=== PATIENT | female | born 1945 | race Caucasian/White ===

== ENCOUNTER 2017-03-24 17:12 | Emergency (ER) | payer MEDICARE ==
[2017-03-24 17:57] LABS: Basophils # (A) 0.1 k/uL (0-0.2); Basophils % (A) 1 %; CH 31.9; CHCM 32.6; Eosinophils # (A) 0.2 k/uL (0-0.7); Eosinophils % (A) 3 %; HCT 40.7 % (34.0-46.0); HGB 13.5 gm/dL (11.4-16.0); Luc # (Auto) 0.19; Luc % (Auto) 2; Lymphocytes # (A) 2.1 k/uL (1.0-4.8); Lymphocytes % (A) 27 %; MCH 32.7 pg (25.0-35.0); MCHC 33.2 g/dL (31.0-37.0); MCV 98.4 fL (80.0-100.0); Mean Platelet Volume 7.4; Monocytes # (A) 0.6 k/uL (0-1.0); Monocytes % (A) 7 %; Neutrophils # (A) 4.7 k/uL (1.3-7.7); Neutrophils % (A) 60 %; RBC 4.13 m/uL (3.80-5.40); RDW 13.2 % (11.5-15.5); WBC 7.8 k/uL (3.8-10.6); WBC (Perox) 8.24
[2017-03-24 18:10] LABS: INR 0.9 (<1.1); Prothrombin Time 9.7 sec (9.0-12.0)
[2017-03-24 18:15] LABS: ALT 23 U/L (9-52); AST 21 U/L (14-36); Alkaline Phosphatase 46 U/L (38-126); Anion Gap 10 mmol/L; Blood Urea Nitrogen 32 mg/dL (7-17); Calcium 9.7 mg/dL (8.4-10.2); Carbon Dioxide 22 mmol/L (22-30); Chloride 105 mmol/L (98-107); Glucose 142 mg/dL (74-99); Magnesium 1.9 mg/dL (1.6-2.3); Non-African American GFR(MDRD) >60 (>60 ml/min/1.73 sqM); Potassium 4.4 mmol/L (3.5-5.1); Sodium 137 mmol/L (137-145); Total Bilirubin 0.5 mg/dL (0.2-1.3); Total Protein 6.8 g/dL (6.3-8.2)
--- NOTE | 2017-03-24 18:30 | ED ---
Chest Pain HPI - General Chief Complaint: Chest Pain Stated Complaint: SHARP CHEST PAIN DOWN AND LEFT, PRESSURE Time Seen by Provider: 03/24/17 17:25 Source: patient, family Mode of arrival: wheelchair Limitations: no limitations - History of Present Illness Initial Comments: This patient is 71-year-old woman who presents to be evaluated after she had an episode of severe, sharp, right-sided chest pain. The patient states that she had just [place]. The pain came on and was severe and lasted for probably 10 seconds and then resolved. Patient did not notice any factors that worsen or relieve the pain. There were no associated symptoms. Following the episode pain her recommended that she be seen and brought her directly here. MD Complaint: chest pain Onset/Timin -: hour(s) Onset: during rest Pain Location: right chest Severity: severe Quality: sharp Consistency: now resolved - Related Data Home Medications Medication Instructions Recorded Confirmed ALPRAZolam [Xanax] 0.25 mg PO BID 03/24/17 03/24/17 Ascorbic Acid [Vitamin C] 500 mg PO DAILY 03/24/17 03/24/17 Cholecalciferol [Vitamin D3] 1,000 unit PO DAILY 03/24/17 03/24/17 Citalopram Hydrobromide 40 mg PO DAILY 03/24/17 03/24/17 Cyanocobalamin [Vitamin B-12] 500 mcg PO DAILY 03/24/17 03/24/17 Donepezil [Aricept] 10 mg PO DAILY 03/24/17 03/24/17 Ibuprofen [Advil] 200 mg PO DAILY 03/24/17 03/24/17 Levothyroxine Sodium [Synthroid] 125 mcg PO DAILY 03/24/17 03/24/17 Lisinopril [Zestril] 20 mg PO DAILY 03/24/17 03/24/17 Zzz Quil 30 ml PO HS 03/24/17 03/24/17 Allergies Allergy/AdvReac Type Severity Reaction Status Date / Time No Known Allergies Allergy Verified 03/24/17 17:57 Review of Systems ROS Statement: Those systems with pertinent positive or pertinent negative responses have been documented in the HPI. ROS Other: All systems not noted in ROS Statement are negative. Constitutional: Denies: fever, chills Respiratory: Denies: cough, dyspnea, wheezes Cardiovascular: Reports: chest pain. Denies: palpitations, orthopnea, edema, syncope Gastrointestinal: Denies: abdominal pain, nausea, vomiting Genitourinary: Denies: dysuria, hematuria Musculoskeletal: Denies: back pain Skin: Denies: rash Neurological: Denies: headache, weakness, numbness EKG Findings - EKG Results: EKG: interpreted by ROCKY BEAUCHAMP, sinus rhythm (Rate 70 bpm), normal axis, normal QRS, normal ST/T, no acute changes - MA, Pacemaker, Normal: Normal tracing: normal tracing Past Medical History Past Medical History: Hypertension History of Any Multi-Drug Resistant Organisms: None Reported Past Surgical History: Appendectomy, Cholecystectomy, Orthopedic Surgery Additional Past Surgical History / Comment(s): LEFT KNEE REPLACED Past Psychological History: Anxiety Smoking Status: Never smoker Past Alcohol Use History: Daily Past Drug Use History: None Reported General Exam Limitations: no limitations General appearance: alert, in no apparent distress, obese Head exam: Present: atraumatic, normocephalic Eye exam: Present: normal appearance. Absent: scleral icterus, conjunctival injection ENT exam: Present: normal oropharynx Neck exam: Present: normal inspection, full ROM Respiratory exam: Present: normal lung sounds bilaterally. Absent: respiratory distress, wheezes, rales, rhonchi, stridor, chest wall tenderness Cardiovascular Exam: Present: regular rate, normal rhythm, systolic murmur ( Grade 1/6 systolic ejection murmur at the right sternal border.). Absent: diastolic murmur, rubs, gallop GI/Abdominal exam: Present: soft. Absent: distended, tenderness, guarding, rebound, organomegaly, mass, pulsatile mass, hernia Extremities exam: Present: normal inspection, normal capillary refill. Absent: pedal edema, calf tenderness Back exam: Present: normal inspection. Absent: CVA tenderness (R), CVA tenderness (L) Neurological exam: Present: alert Skin exam: Present: warm, dry, intact, normal color. Absent: rash Course Vital Signs 03/24/17 03/24/17 03/24/17 17:14 19:24 20:33 Temperature 97.6 F 98.0 F Pulse Rate 75 73 60 Respiratory 16 18 18 Rate Blood Pressure 137/71 144/67 101/70 O2 Sat by Pulse 98 97 98 Oximetry Chest Pain [facility] - [facility]DM Patient is 71-year-old woman presenting with episode of chest pain that lasted 5 -10 seconds and resolved. Her workup here is negative. We did discuss the fact that this sort of event requires more than 1 set of cardiac enzymes to rule out MA, but the patient is refusing to stay overnight. She states that she will follow up with cardiology as outpatient. We discussed return parameters and she agrees to return should any symptoms recur. Disposition Clinical Impression: Chest pain Disposition: HOME SELF-CARE Condition: Good Instructions: Chest Pain (ED) Referrals: Matti Diehl DO [Primary Care Provider] - 1-2 days Justina Pandey MD [STAFF PHYSICIAN] - 1-2 days
--- NOTE | 2017-03-24 18:32 | XR ---
EXAMINATION TYPE: XR chest 1V portable DATE OF EXAM: 03/24/2017 6:20 PM COMPARISON: NONE HISTORY: Chest pain and heaviness today. TECHNIQUE: Single AP portable frontal upright view of the chest is obtained. FINDINGS: Low lung volumes are present. There is no focal air space opacity, pleural effusion, or pn eumothorax seen. The cardiac silhouette size is upper limits of normal. Subchondral cystic change bi lateral humeral heads is present. IMPRESSION: No acute process.
[2017-03-24] MEDS ORDERED: RX INFO: IV CONTRAST WAS GIVEN 1 EACH MISC MISCELLANE PRN (18:34)
[2017-03-24 19:25] VITALS: RESP 18
--- NOTE | 2017-03-24 19:44 | CT ---
EXAMINATION TYPE: CT chest angio for PE DATE OF EXAM: 03/24/2017 7:13 PM COMPARISON: NONE HISTORY: Pt states of chest pain today. CT DLP: 528.6 mGycm. Automated Exposure Control for Dose Reduction was Utilized. CONTRAST: CTA scan of the thorax is performed with IV Contrast, patient injected with 70 mL of Omnipaque 350, p ulmonary embolism protocol. MIP Images are created on CT scanner and reviewed. FINDINGS: LUNGS: The lungs are grossly clear, there is no concerning parenchymal mass or nodule identified. Th ere is thin-walled cyst or bleb in the left upper lobe on axial image 48. There is no pleural effusio n or pneumothorax seen. The tracheobronchial tree is patent. MEDIASTINUM: There is satisfactory enhancement of the pulmonary artery and its branches, there is no CT evidence for pulmonary embolism. There are no greater than 1 cm hilar or mediastinal lymph nodes. No cardiomegaly or pericardial effusion is seen. Bovine type arch is seen which is normal variant. Ectatic course to visualized abdominal aorta is noted. OTHER: Mild compression type fracture L1 level is presumed chronic as there is no suspicious lucency identified. This is at the peak of thoracolumbar curvature. IMPRESSION: No CT evidence for pulmonary embolism. No suspicious acute pulmonary process.
[2017-03-24 20:36] VITALS: BP 101/70; PULSE 60; TEMP 98
== END 2017-03-24 20:34 | disposition home or self-care (01) ==
LOC: EC 17:12
DX: R07.89 Other chest pain (principal); E66.9 Obesity, unspecified; I10 Essential (primary) hypertension; F41.9 Anxiety disorder, unspecified; Z79.1 Long term (current) use of non-steroidal anti-inflammatories (NSAID); Z79.899 Other long term (current) drug therapy
CPT/HCPCS: 36415; 93005; 85379; 80053; 83735; 84484; 85025; 85610; 85730; 71010; 71275; 99285; Q9967

== ENCOUNTER → 2017-07-02 | Outpatient (CLI) | payer MEDICARE ==
--- NOTE | 2017-07-07 11:09 | MM ---
Reason for exam: screening (asymptomatic). Last mammogram was performed 7 years and 6 months ago. History: Patient is postmenopausal. Family history of breast cancer in cousin. Physical Findings: A clinical breast exam by your physician is recommended on an annual basis and results should be correlated with mammographic findings. MG 3D Screening Mammo W/Cad Bilateral CC and MLO view(s) were taken. Prior study comparison: April 14, 2006, bilateral screening mammogram w/CAD. March 08, 2002, bilateral screening mammogram. There are scattered fibroglandular densities. There is no discrete abnormality. ASSESSMENT: Negative, BI-RAD 1 RECOMMENDATION: Routine screening mammogram of both breasts in 1 year.
== END | disposition home or self-care (01) ==
LOC: RADMAMWWP 13:10
PROVIDERS: ATTEND Family Medicine
DX: Z12.31 Encounter for screening mammogram for malignant neoplasm of breast (principal)
CPT/HCPCS: 77063; G0202

== ENCOUNTER → 2017-07-16 | Outpatient (CLI) | payer MEDICARE | END | disposition home or self-care (01) | LOC: LABWHC1 14:29 | PROVIDERS: ATTEND Internal Medicine Endocrinology, Diabetes & Metabolism | DX: E03.8 Other specified hypothyroidism (principal) | CPT/HCPCS: 36415; 84443 ==

== ENCOUNTER 2018-04-18 17:19 | Emergency (ER) | payer MEDICARE ==
[2018-04-18 17:25] VITALS: BP 141/65; PULSE 70; RESP 20; TEMP 97.8
[2018-04-18] MEDS ORDERED: PROPARACAINE 0.5% OPHTH DROPS 15 ML BTL RIGHT EYE STA (17:44)
--- NOTE | 2018-04-18 18:11 | ED ---
Eye Problem HPI - General Chief complaint: Eye Problems Stated complaint: Eye Pain Time Seen by Provider: 04/18/18 17:45 Source: patient, RN notes reviewed Mode of arrival: ambulatory Limitations: no limitations - History of Present Illness Initial comments: This is a 72-year-old female who presents to the emergency department with chief complaint of right eye pain. Patient states that at 3:30 this afternoon she put on her eye makeup. She states that immediately afterwards her right eye developed a burning sensation. Her is at bedside and states that while at latter-day patient's eye was burning and tearing excessively. Patient denies any vision changes or blurred vision. She denies any foreign body sensation. Denies recent fevers or chills, chest pain or shortness breath, abdominal pain, nausea or vomiting, headache or dizziness. Patient states that currently, her symptoms have improved. - Related Data Home Medications Medication Instructions Recorded Confirmed ALPRAZolam [Xanax] 0.25 mg PO BID 03/24/17 03/24/17 Ascorbic Acid [Vitamin C] 500 mg PO DAILY 03/24/17 03/24/17 Cholecalciferol [Vitamin D3] 1,000 unit PO DAILY 03/24/17 03/24/17 Citalopram Hydrobromide 40 mg PO DAILY 03/24/17 03/24/17 [Citalopram HBr] Cyanocobalamin [Vitamin B-12] 500 mcg PO DAILY 03/24/17 03/24/17 Donepezil [Aricept] 10 mg PO DAILY 03/24/17 03/24/17 Ibuprofen [Advil] 200 mg PO DAILY 03/24/17 03/24/17 Levothyroxine Sodium [Synthroid] 125 mcg PO DAILY 03/24/17 03/24/17 Lisinopril [Zestril] 20 mg PO DAILY 03/24/17 03/24/17 Zzz Quil 30 ml PO HS 03/24/17 03/24/17 Previous Rx's Medication Instructions Recorded Carboxymethylcellulose Sodium 1 - 2 drops OP Q4HR PRN #1 bottle 04/18/18 [Refresh Tears] Allergies Allergy/AdvReac Type Severity Reaction Status Date / Time No Known Allergies Allergy Verified 04/18/18 17:25 Review of Systems ROS Statement: Those systems with pertinent positive or pertinent negative responses have been documented in the HPI. ROS Other: All systems not noted in ROS Statement are negative. Past Medical History Past Medical History: Hypertension History of Any Multi-Drug Resistant Organisms: None Reported Past Surgical History: Appendectomy, Cholecystectomy, Orthopedic Surgery Additional Past Surgical History / Comment(s): LEFT KNEE REPLACED Past Psychological History: Anxiety Smoking Status: Never smoker Past Alcohol Use History: Daily Past Drug Use History: None Reported General Exam - General Exam Comments Initial Comments: General: Awake and alert, well-developed; in no apparent distress. HEENT: Head atraumatic, normocephalic. Pupils are equal, round and reactive to light. Extraocular movements intact. Bilateral conjunctiva are non-injected. Visual acuity is consistent in bilateral eyes. On fluorescein staining, no abrasions or ulcers noted. Oropharynx moist without erythema or exudate. Neck: Supple. Normal ROM. Cardiovascular: Regular rate and rhythm. No murmurs, rubs or gallops. Chest symmetrical. Respiratory: Lungs clear to auscultation bilaterally. No wheezes, rales or rhonchi. Normal respiratory effort with no use of accessory muscles. Musculoskeletal: Normal ROM, no tenderness bilateral upper and lower extremities. Ambulating normally. Skin: [place], warm and dry without rashes or lesions. Neurological: Alert and oriented x3. CN II-XII grossly intact. Speech is fluent and answers are appropriate. No focal neuro deficits. Psychiatric: Normal mood and affect. No overt signs of depression or anxiety noted. Limitations: no limitations Course Vital Signs 04/18/18 17:22 Temperature 97.8 F Pulse Rate 70 Respiratory 20 Rate Blood Pressure 141/65 O2 Sat by Pulse 96 Oximetry Medical Decision Making - Medical Decision Making This is a 72-year-old female who presented to the emergency department for evaluation of burning right eye. Patient states that she developed a burning sensation and tearing in her right eye immediately after putting on eye makeup this afternoon. Right conjunctiva is non-injected. Extraocular movements are intact. Visual acuity is consistent bilaterally. On fluorescein staining, no abrasions or ulcers noted. Patient likely sustained irritation from her eye makeup. Upon discussing this, she states that this has happened a couple times over the past few months after applying eye makeup. Recommended abstaining from using eye makeup to see if this is what is causing the irritation. Patient is in no acute distress and vital signs are stable. She will be discharged home at this time. All questions answered. Disposition Clinical Impression: Irritation of eye Disposition: HOME SELF-CARE Condition: Good Instructions: Eye Pain (ED) Additional Instructions: Please take medications as prescribed. Please follow up with primary care provider within 1-2 days. Return to emergency department if symptoms should worsen or any concerns arise. Prescriptions: Carboxymethylcellulose Sodium [Refresh Tears] 1 - 2 drops OP Q4HR PRN #1 bottle PRN Reason: Eye Irritation Is patient prescribed a controlled substance at d/c from ED?: No Referrals: Matti Diehl DO [Primary Care Provider] - 1-2 days Time of Disposition: 18:18
== END 2018-04-18 18:32 | disposition home or self-care (01) ==
LOC: EC 17:19
DX: H57.8 Other specified disorders of eye and adnexa (principal); H57.11 Ocular pain, right eye; I10 Essential (primary) hypertension; F41.9 Anxiety disorder, unspecified; Z79.1 Long term (current) use of non-steroidal anti-inflammatories (NSAID); Z79.899 Other long term (current) drug therapy
CPT/HCPCS: 99283

== ENCOUNTER → 2019-10-14 | Outpatient (CLI) | payer MEDICARE ==
--- NOTE | 2019-10-15 10:50 | MM ---
Reason for exam: screening (asymptomatic). Last mammogram was performed 2 years and 3 months ago. History: Patient is postmenopausal. Family history of breast cancer in cousin. Physical Findings: A clinical breast exam by your physician is recommended on an annual basis and results should be correlated with mammographic findings. MG 3D Screening Mammo W/Cad Bilateral CC, MLO, and CV view(s) were taken. Prior study comparison: July 02, 2017, bilateral MG 3d screening mammo w/cad. December 26, 2009, bilateral digital screening mammogram. The breast tissue is almost entirely fat. There is no discrete abnormality. No significant changes when compared with prior studies. ASSESSMENT: Negative, BI-RAD 1 RECOMMENDATION: Routine screening mammogram of both breasts in 1 year.
== END ==
LOC: RADMAMWWP 11:09
PROVIDERS: ATTEND Family Medicine
DX: Z12.31 Encounter for screening mammogram for malignant neoplasm of breast (principal)
CPT/HCPCS: 77063; 77067

== ENCOUNTER → 2019-12-22 | Day surgery (SDC) | payer MEDICARE ==
[2019-12-21 10:00] VITALS: BMI 43.4
[~2019-12-22] MED LIST: LACTATED RINGERS 1,000 ML IV SCH; LIDOCAINE 1% 20 ML VIAL (10MG/ML) FOR IV START INTRADERMA ONE; LIDOCAINE 1% 20 ML VIAL (10MG/ML) FOR IV START INTRADERMA PRN; PROPOFOL 10 MG/ML 20 ML VIAL IV ONE
[2019-12-22 08:56] VITALS: RESP 16; TEMP 98.2
[2019-12-22 09:06] LABS: Glucose,Whole Blood 175 mg/dL (75-99)
--- NOTE | 2019-12-22 09:33 | P.PCN ---
Date of Procedure: 12/22/19 Procedure(s) Performed: BRIEF HISTORY: Patient is a 74-year-old pleasant female scheduled for an elective colonoscopy as a part of screening for colorectal neoplasia. PROCEDURE PERFORMED: Colonoscopy with snare polypectomy. PREOPERATIVE DIAGNOSIS: Screening for colon cancer. IV sedation per Anesthesia. PROCEDURE: After informed consent was obtained, the patient, was brought into the endoscopy unit. IV sedation was administered by Anesthesia under continuous monitoring. Digital rectal examination was normal. Initially the Olympus CF-160 flexible video colonoscope was then inserted in the rectum, gradually advanced into the cecum without any difficulty. Careful examination was performed as the scope was gradually being withdrawn. Ileocecal valve and the appendiceal orifice were visualized and appeared normal. Prep was excellent. Mucosa of the cecum, appeared normal. In the ascending colon there were 2 polyps measuring 5 mm in size both of which were removed by snare polypectomy. In the transverse colon there was a 3 mm polyp removed by snare polypectomy. Rest of the ascending colon, transverse colon, descending colon, sigmoid colon, and rectum appeared normal. The proximal rectum there was a 3 mm polyp removed by snare polypectomy. Retroflexion was performed in the rectum and no lesions were seen. The patient tolerated the procedure well. IMPRESSION: 5 mm 2 ascending colon polyp status post polypectomy 3 mm transverse colon polyp status post polypectomy 3 mm proximal rectal polyp status post polypectomy RECOMMENDATIONS: Findings of this examination were discussed with the patient as well as a family. She was advised to follow with the biopsy results. If the biopsy shows an adenoma she can have a repeat colonoscopy in 3 years.
[2019-12-22 09:54] VITALS: BP 114/62; PULSE 59
== END ==
LOC: ORWHC2ENDO 08:16
PROVIDERS: ATTEND Internal Medicine Gastroenterology
DX: Z12.11 Encounter for screening for malignant neoplasm of colon (principal); D12.2 Benign neoplasm of ascending colon; K62.1 Rectal polyp; I10 Essential (primary) hypertension; E78.5 Hyperlipidemia, unspecified; E07.9 Disorder of thyroid, unspecified; F32.9 Major depressive disorder, single episode, unspecified; F41.9 Anxiety disorder, unspecified; E66.01 Morbid (severe) obesity due to excess calories; Z68.41 Body mass index [BMI] 40.0-44.9, adult; Z79.899 Other long term (current) drug therapy; Z79.890 Hormone replacement therapy; Z96.659 Presence of unspecified artificial knee joint
CPT/HCPCS: 88305; 45385; J2704

== ENCOUNTER → 2022-08-09 | Outpatient (CLI) | payer MEDICARE ==
--- NOTE | 2022-08-09 13:54 | US ---
EXAMINATION TYPE: US venous doppler duplex LE RT DATE OF EXAM: 08/09/2022 1:44 PM COMPARISON: NONE CLINICAL HISTORY: [id number] OTH DISRD OF BONE DENSITY. Right leg swelling SIDE PERFORMED: Right TECHNIQUE: The lower extremity deep venous system is examined utilizing real time linear array sonog jadon with graded compression, doppler sonography and color-flow sonography. VESSELS IMAGED: Common Femoral Vein Deep Femoral Vein Greater Saphenous Vein * Femoral Vein Popliteal Vein Small Saphenous Vein * Proximal Calf Veins (* superficial vessels) Difficult and limited study due to patient body habitus Right Leg: Visualized portions appear negative for DVT IMPRESSION: no evidence for dvt
== END | disposition home or self-care (01) ==
LOC: RADUSWWP 13:16
PROVIDERS: ATTEND Family Medicine
DX: R60.0 Localized edema (principal)

== ENCOUNTER 2023-02-10 11:21 | Inpatient (IN) | payer MEDICARE ==
[2023-02-10] MEDS ORDERED: SODIUM CHLORIDE 0.9% 1,000 ML IV STA ×2 (12:11→13:55)
[2023-02-10 12:40] LABS: Basophils # (A) 0.1 k/uL (0-0.2); Basophils % (A) 1 %; Eosinophils # (A) 0.3 k/uL (0-0.7); Eosinophils % (A) 4 %; HCT 38.3 % (34.0-46.0); HGB 12.6 gm/dL (11.4-16.0); Lymphocytes # (A) 1.4 k/uL (1.0-4.8); Lymphocytes % (A) 18 %; MCH 30.8 pg (25.0-35.0); MCHC 32.9 g/dL (31.0-37.0); MCV 93.7 fL (80.0-100.0); Mean Platelet Volume 8.9; Monocytes # (A) 0.5 k/uL (0-1.0); Monocytes % (A) 7 %; Neutrophils # (A) 5.3 k/uL (1.3-7.7); Neutrophils % (A) 70 %; Platelet Count 200 k/uL (150-450); RBC 4.09 m/uL (3.80-5.40); RDW 13.4 % (11.5-15.5); WBC 7.6 k/uL (3.8-10.6)
--- NOTE | 2023-02-10 12:52 | ED ---
General Adult HPI - General Chief complaint: Weakness Stated complaint: Abn Labs/Recheck Time Seen by Provider: 02/10/23 11:39 Source: patient, EMS, RN notes reviewed, old records reviewed Mode of arrival: EMS Limitations: physical limitation - History of Present Illness Initial comments: She is a 77-year-old female with a history of dementia, hypertension, thyroid disorder, hyperlipidemia who presents emergency Department complaining of weakness. Was recently diagnosed with Covid. Has had decreased oral intake. Is otherwise acting her baseline. She is just not as active as she normally is. Seems more tired per family. She denies eating and drinking as much either. They did notice that her pulse ox at home was in the high 80%'s which is why they brought her for further evaluation. Patient is currently full code. No other acute complaints at this time. There is nasal congestion and a mild cough. Presents for further evaluation at this time. Patient's [id number] is at bedside who provides most of the history. - Related Data Home Medications Medication Instructions Recorded Confirmed Cholecalciferol [Vitamin D3] 50 mcg PO DAILY 03/24/17 02/10/23 Citalopram Hydrobromide 40 mg PO HS 03/24/17 02/10/23 [Citalopram HBr] Levothyroxine Sodium [Synthroid] 125 mcg PO DAILY 03/24/17 02/10/23 Atorvastatin [Lipitor] 20 mg PO DAILY 12/21/19 02/10/23 Cetirizine HCl [Zyrtec] 10 mg PO DAILY 12/21/19 02/10/23 Gabapentin [Neurontin] 300 mg PO TID 12/21/19 02/10/23 Memantine HCl [Namenda Xr] 28 mg PO HS 12/21/19 02/10/23 busPIRone HCL 15 mg PO BID 12/21/19 02/10/23 Cyanocobalamin (Vitamin B-12) 5,000 mcg PO DAILY 02/10/23 02/10/23 [Vitamin B-12] Lisinopril-Hctz 20-12.5 mg 1 tab PO DAILY 02/10/23 02/10/23 [Zestoretic 20-12.5] [place] 3-6-9 1 cap PO DAILY 02/10/23 02/10/23 metFORMIN HCL ER [Glucophage XR] 1,000 mg PO BID 02/10/23 02/10/23 sitaGLIPtin [Januvia] 100 mg PO DAILY 02/10/23 02/10/23 Allergies Allergy/AdvReac Type Severity Reaction Status Date / Time No Known Allergies Allergy Verified 02/10/23 12:34 Review of Systems ROS Statement: Those systems with pertinent positive or pertinent negative responses have been documented in the HPI. ROS Other: All systems not noted in ROS Statement are negative. Past Medical History Past Medical History: Dementia, Deep Vein Thrombosis (DVT), Hyperlipidemia, Hyp ertension, Memory Impairment, Osteoarthritis (OA), Thyroid Disorder Additional Past Medical History / Comment(s): current nasal congestion, no fever, states "positive cologaurd" chronic pain, History of Any Multi-Drug Resistant Organisms: None Reported Past Surgical History: Appendectomy, Cholecystectomy, Joint Replacement, Orthopedic Surgery Additional Past Surgical History / Comment(s): LEFT KNEE REPLACED, colonoscopy Past Anesthesia/Blood Transfusion Reactions: No Reported Reaction Past Psychological History: Anxiety Past Alcohol Use History: None Reported - Past Family History Mother Family Medical History: Cancer Additional Family Medical History / Comment(s): lung General Exam - General Exam Comments Initial Comments: General: Appears in no acute distress. HEAD: Normal with no signs of head trauma. EYES: PERRLA, EOMI, conjunctiva normal, no discharge. ENT: Hearing grossly intact, normal oropharynx. Dry mucous membranes. RESPIRATORY: Relatively clear breath sounds bilaterally. No respiratory distress. Patient is hypoxic off oxygen to 89-91%.. Normoxic on 2 L nasal cannula. C/V: Regular rate and rhythm. S1 and S2 auscultated, no edema, peripheral pulses 2+ and intact throughout ABD: Abd is soft, nontender, nondistended EXT: Normal range of motion, no obvious deformity SKIN: No rashes or lesions observed on exposed skin. NEURO: Alert and oriented 1. No focal deficits. Limitations: physical limitation Course Vital Signs 02/10/23 02/10/23 02/10/23 11:30 12:00 13:03 Temperature 98.3 F Pulse Rate 71 60 Respiratory 18 18 Rate Blood Pressure 96/48 94/75 O2 Sat by Pulse 95 91 L 97 Oximetry 02/10/23 14:50 Temperature Pulse Rate 65 Respiratory 18 Rate Blood Pressure 131/79 O2 Sat by Pulse 98 Oximetry Medical Decision Making - Medical Decision Making Was pt. sent in by a medical professional or institution (ASHISH Brennan, [employer], urgent care, hospital, or alf...) When possible be specific @ -No Did you speak to anyone other than the patient for history (EMS, parent, family, police, friend...)? What history was obtained from this source @ -Yes, patient's [id number] who provides most the history. Did you review nursing and triage notes (agree or disagree)? Why? @ -I reviewed and agree with nursing and triage notes Were old charts reviewed (outside hosp., previous admission, EMS record, old EKG, old radiological studies, urgent care reports/EKG's, alf records)? Report findings @ -Yes, old charts reviewed from 2016. Differential Diagnosis (chest pain, altered mental status, abdominal pain women, abdominal pain men, vaginal bleeding, weakness, fever, dyspnea, syncope, headache, dizziness, GI bleed, back pain, seizure, CVA, palpatations, mental health, musculoskeletal)? @ -Differential Weakness: Hypoglycemia, shock, sepsis, hyponatremia, anemia, infection, OH, ETOH, adverse medicine reaction, overdose, stroke, Covid 19 infection, dehydration. This is not meant to be an all-inclusive list. EKG interpreted by me (3pts min.). @ -As above X-rays interpreted by me (1pt min.). @ -Chest x-ray reveals no obvious cardio pulmonary process. Patient does have poor insight inspiratory effort. CT interpreted by me (1pt min.). @ -None done U/S interpreted by me (1pt. min.). @ -None done What testing was considered but not performed or refused? (CT, X-rays, U/S, labs)? Why? @ -None What meds were considered but not given or refused? Why? @ -None Did you discuss the management of the patient with other professionals (professionals i.e. ASHISH Brennan, [employer], lab, RT, psych nurse, social science research assistant, manager molecular, teacher, police patrol officer, caser in)? Give summary @ -Discussed with the admitting physician, Dr. Macias who accepted the patient. Was smoking cessation discussed for >3mins.? @ -No Was critical care preformed (if so, how long)? @ -No Were there social determinants of health that impacted care today? How? (Homelessness, low income, unemployed, alcoholism, drug addiction, transportation, low edu. Level, literacy, decrease access to med. care, custodial, rehab)? @ -No Was there de-escalation of care discussed even if they declined (Discuss DNR or withdrawal of care, Hospice)? DNR status @ -Yes, I did discuss DO NOT RESUSCITATE status and for now the patient will remain full code with the patient's [id number] is discussing actively with the patient's regarding DNR/DNI. What co-morbidities impacted this encounter? (DM, HTN, Smoking, COPD, CAD, Cancer, CVA, ARF, Chemo, Hep., AIDS, mental health diagnosis, sleep apnea, morbid obesity)? @ -None Was patient admitted / discharged? Hospital course, mention meds given and route, prescriptions, significant lab abnormalities, going to OR and other pertinent info. @ -Based on the patient's presentation and physical exam, she appears dehydrated likely secondary to Covid 19 infection with mild hypoxia. We will obtain infectious laboratory studies. She was placed on 2 L nasal cannula which did improve her oxygenation. She'll be given multiple fluid boluses. Family and patient were in agreement with this plan. Vital signs otherwise within acceptable limits. EKG shows no signs of acute ischemia. Chest x-ray showed was a poor study. Inconclusive. Laboratory studies are remarkable for a mild [place] eye with a creatinine of 1.29 which is higher than baseline. BUN is also elevated at 31. Patient's hypomagnesemic to 1.4 which was replenished. Lactic acid within normal limits. Troponin undetectable. Patient is Covid-positive stool. Urine is negative.I do believe the patient's hypoxia is likely part factorial, as the patient does have obesity, and it seems to be worse when she is sleeping but improved when she is awake and alert. We'll continue to try to wean her off of it. On reevaluation, patient is more alert at this time following multiple fluid boluses. I discussed results with her as well as her [id number]. She will be admitted for IV hydration and further monitoring and she is still requiring low amounts of oxygen to remain normoxic. They were in agreement this plan. I spoke with the admitting physician, Dr. Macias who accepted the patient. Undiagnosed new problem with uncertain prognosis? @ -No Drug Therapy requiring intensive monitoring for toxicity (Heparin, Nitro, Insulin, Cardizem)? @ -No Were any procedures done? @ -No Diagnosis/symptom? @ -Covid 19 infection Acute, or Chronic, or Acute on Chronic? @ -Acute Uncomplicated (without systemic symptoms) or Complicated (systemic symptoms)? @ -Complicated Side effects of treatment? @ -No Exacerbation, Progression, or Severe Exacerbation? @ -No Poses a threat to life or bodily function? How? (Chest pain, [place], OH, pneumonia, PE, COPD, DKA, ARF, appy, cholecystitis, CVA, Diverticulitis, Homicidal, Suicidal, threat to staff... and all critical care pts) @ -Yes, can result in significant morbidity and mortality. Diagnosis/symptom? @ -Hypoxia secondary to Covid 19 infection Acute, or Chronic, or Acute on Chronic? @ -Acute Uncomplicated (without systemic symptoms) or Complicated (systemic symptoms)? @ -Complicated Side effects of treatment? @ -none Exacerbation, Progression, or Severe Exacerbation] @ -no Poses a threat to life or bodily function? @ -Yes, can result in significant morbidity and mortality. Diagnosis/symptom? @ -Dementia Acute, or Chronic, or Acute on Chronic? @ - chronic Uncomplicated (without systemic symptoms) or Complicated (systemic symptoms)? @ -Uncomplicated Side effects of treatment? @ -none Exacerbation, Progression, or Severe Exacerbation] @ -no Poses a threat to life or bodily function? @ -no Diagnosis/symptom? @ -Acute kidney injury secondary to dehydration Acute, or Chronic, or Acute on Chronic? @ -Acute Uncomplicated (without systemic symptoms) or Complicated (systemic symptoms)? @ -Complicated Side effects of treatment? @ -none Exacerbation, Progression, or Severe Exacerbation] @ -no Poses a threat to life or bodily function? @ -Yes, can result in significant morbidity and mortality. Diagnosis/symptom? @ -Hypomagnesemia Acute, or Chronic, or Acute on Chronic? @ -Acute Uncomplicated (without systemic symptoms) or Complicated (systemic symptoms)? @ -Uncomplicated Side effects of treatment? @ -none Exacerbation, Progression, or Severe Exacerbation] @ -no Poses a threat to life or bodily function? @ -Yes, can result in significant morbidity and mortality. - Lab Data Result diagrams: 02/10/23 12:18 02/10/23 13:40 Lab Results 02/10/23 02/10/2323 Range/Units 12:18 12:18 12:18 WBC 7.6 (3.8-10.6) k/uL RBC 4.09 (3.80-5.40) m/uL Hgb 12.6 (11.4-16.0) gm/dL Hct 38.3 (34.0-46.0) % MCV 93.7 (80.0-100.0) fL MCH 30.8 (25.0-35.0) pg MCHC 32.9 (31.0-37.0) g/dL RDW 13.4 (11.5-15.5) % Plt Count 200 (150-450) k/uL MPV 8.9 Neutrophils % 70 % Lymphocytes % 18 % Monocytes % 7 % Eosinophils % 4 % Basophils % 1 % Neutrophils # 5.3 (1.3-7.7) k/uL Lymphocytes # 1.4 (1.0-4.8) k/uL Monocytes # 0.5 (0-1.0) k/uL Eosinophils # 0.3 (0-0.7) k/uL Basophils # 0.1 (0-0.2) k/uL Sodium (137-145) mmol/L Potassium (3.5-5.1) mmol/L Chloride (98-107) mmol/L Carbon Dioxide (22-30) mmol/L Anion Gap mmol/L BUN (7-17) mg/dL Creatinine (0.52-1.04) mg/dL Est GFR (CKD-EPI)AfAm (>60 ml/min/1.73 sqM) Est GFR (CKD-EPI)NonAf (>60 ml/min/1.73 sqM) Glucose (74-99) mg/dL Plasma Lactic Acid Sylvester 1.0 (0.7-2.0) mmol/L Calcium (8.4-10.2) mg/dL Magnesium (1.6-2.3) mg/dL Total Bilirubin (0.2-1.3) mg/dL AST (14-36) U/L ALT (4-34) U/L Alkaline Phosphatase (38-126) U/L Troponin I (0.000-0.034) ng/mL NT-Pro-B Natriuret Pep 77 pg/mL Total Protein (6.3-8.2) g/dL Albumin (3.5-5.0) g/dL Urine Color Urine Appearance (Clear) Urine pH (5.0-8.0) Ur Specific [place] (1.001-1.035) Urine Protein (Negative) Urine Glucose (UA) (Negative) Urine Ketones (Negative) Urine Blood (Negative) Urine Nitrite (Negative) Urine Bilirubin (Negative) Urine Urobilinogen (<2.0) mg/dL Ur Leukocyte Esterase (Negative) Influenza Type A (PCR) (Not Detectd) Influenza Type B (PCR) (Not Detectd) RSV (PCR) (Not Detectd) SARS-CoV-2 (PCR) (Not Detectd) 02/10/23 02/10/23 02/10/23 Range/Units 12:18 12:32 13:40 WBC (3.8-10.6) k/uL RBC (3.80-5.40) m/uL Hgb (11.4-16.0) gm/dL Hct (34.0-46.0) % MCV (80.0-100.0) fL MCH (25.0-35.0) pg MCHC (31.0-37.0) g/dL RDW (11.5-15.5) % Plt Count (150-450) k/uL MPV Neutrophils % % Lymphocytes % % Monocytes % % Eosinophils % % Basophils % % Neutrophils # (1.3-7.7) k/uL Lymphocytes # (1.0-4.8) k/uL Monocytes # (0-1.0) k/uL Eosinophils # (0-0.7) k/uL Basophils # (0-0.2) k/uL Sodium 137 (137-145) mmol/L Potassium 4.3 (3.5-5.1) mmol/L Chloride 102 (98-107) mmol/L Carbon Dioxide 29 (22-30) mmol/L Anion Gap 6 mmol/L BUN 31 H (7-17) mg/dL Creatinine 1.29 H (0.52-1.04) mg/dL Est GFR (CKD-EPI)AfAm 47 (>60 ml/min/1.73 sqM) Est GFR (CKD-EPI)NonAf 41 (>60 ml/min/1.73 sqM) Glucose 129 H (74-99) mg/dL Plasma Lactic Acid Sylvester (0.7-2.0) mmol/L Calcium 8.3 L (8.4-10.2) mg/dL Magnesium 1.4 L (1.6-2.3) mg/dL Total Bilirubin 0.7 (0.2-1.3) mg/dL AST 23 (14-36) U/L ALT 25 (4-34) U/L Alkaline Phosphatase 49 (38-126) U/L Troponin I (0.000-0.034) ng/mL NT-Pro-B Natriuret Pep pg/mL Total Protein 5.7 L (6.3-8.2) g/dL Albumin 3.5 (3.5-5.0) g/dL Urine Color Yellow Urine Appearance Clear (Clear) Urine pH 6.0 (5.0-8.0) Ur Specific [place] 1.019 (1.001-1.035) Urine Protein Trace H (Negative) Urine Glucose (UA) Negative (Negative) Urine Ketones Negative (Negative) Urine Blood Negative (Negative) Urine Nitrite Negative (Negative) Urine Bilirubin Negative (Negative) Urine Urobilinogen <2.0 (<2.0) mg/dL Ur Leukocyte Esterase Negative (Negative) Influenza Type A (PCR) Not Detected (Not Detectd) Influenza Type B (PCR) Not Detected (Not Detectd) RSV (PCR) Not Detected (Not Detectd) SARS-CoV-2 (PCR) Detected A (Not Detectd) 02/10/23 Range/Units 13:40 WBC (3.8-10.6) k/uL RBC (3.80-5.40) m/uL Hgb (11.4-16.0) gm/dL Hct (34.0-46.0) % MCV (80.0-100.0) fL MCH (25.0-35.0) pg MCHC (31.0-37.0) g/dL RDW (11.5-15.5) % Plt Count (150-450) k/uL MPV Neutrophils % % Lymphocytes % % Monocytes % % Eosinophils % % Basophils % % Neutrophils # (1.3-7.7) k/uL Lymphocytes # (1.0-4.8) k/uL Monocytes # (0-1.0) k/uL Eosinophils # (0-0.7) k/uL Basophils # (0-0.2) k/uL Sodium (137-145) mmol/L Potassium (3.5-5.1) mmol/L Chloride (98-107) mmol/L Carbon Dioxide (22-30) mmol/L Anion Gap mmol/L BUN (7-17) mg/dL Creatinine (0.52-1.04) mg/dL Est GFR (CKD-EPI)AfAm (>60 ml/min/1.73 sqM) Est GFR (CKD-EPI)NonAf (>60 ml/min/1.73 sqM) Glucose (74-99) mg/dL Plasma Lactic Acid Sylvester (0.7-2.0) mmol/L Calcium (8.4-10.2) mg/dL Magnesium (1.6-2.3) mg/dL Total Bilirubin (0.2-1.3) mg/dL AST (14-36) U/L ALT (4-34) U/L Alkaline Phosphatase (38-126) U/L Troponin I <0.012 (0.000-0.034) ng/mL NT-Pro-B Natriuret Pep pg/mL Total Protein (6.3-8.2) g/dL Albumin (3.5-5.0) g/dL Urine Color Urine Appearance (Clear) Urine pH (5.0-8.0) Ur Specific [place] (1.001-1.035) Urine Protein (Negative) Urine Glucose (UA) (Negative) Urine Ketones (Negative) Urine Blood (Negative) Urine Nitrite (Negative) Urine Bilirubin (Negative) Urine Urobilinogen (<2.0) mg/dL Ur Leukocyte Esterase (Negative) Influenza Type A (PCR) (Not Detectd) Influenza Type B (PCR) (Not Detectd) RSV (PCR) (Not Detectd) SARS-CoV-2 (PCR) (Not Detectd) - EKG Data -: EKG Interpreted by Me EKG Comments: 12-lead Electrocardiogram Interpretation Note EKG was reviewed and interpreted by myself. 12-lead ECG performed at 1152 is interpreted by me as revealing normal sinus rhythm at a rate of 70 beats per minute. [place] is normal. CO interval is 160 ms, QRS duration is 96 ms, QTc is 424 ms. There were no ST or T wave abnormalities to suggest myocardial ischemia or injury. R wave progression across the precordium was satisfactory. By my interpretation this EKG is non-diagnostic for acute ischemia. When compared with EKG from 03/24/2017, no significant change. Disposition Clinical Impression: Hypoxia, Dehydration, FELECIA (acute kidney injury), Dementia, COVID-19 virus infection, Hypomagnesemia Disposition: ADMITTED IP TO THIS HOSP Condition: Stable Time of Disposition: 14:10
--- NOTE | 2023-02-10 13:16 | XR ---
EXAMINATION TYPE: XR chest 2V DATE OF EXAM: 02/10/2023 1:02 PM COMPARISON: Chest radiographs from 03/24/2017, CT for 2417 TECHNIQUE: XR chest 2V Frontal and lateral views of the chest. CLINICAL INDICATION:Female, 77 years old with history of Weakness; FINDINGS: Lungs/Pleura: Low lung volumes are present. There is no evidence of pleural effusion, focal consolida tion, or pneumothorax. Pulmonary vascularity: Unremarkable. Heart/mediastinum: Cardiomediastinal silhouette is unremarkable. Musculoskeletal: Degenerative changes of the shoulder joints. IMPRESSION: Low lung volumes with increased haziness to the lungs left greater than right. Consider repeat examin ation, attention follow-up.
[2023-02-10 13:50] LABS: Appearance,Urine Clear (Clear); Bilirubin,Urine Negative (Negative); Blood,Urine Negative (Negative); Color,Urine Yellow; Glucose,Urine (UA) Negative (Negative); Ketones,Urine Negative (Negative); Leukocyte Esterase,Urine Negative (Negative); Nitrite,Urine Negative (Negative); Protein,Urine Trace (Negative); Specific Gravity,Urine 1.019 (1.001-1.035); Urobilinogen,Urine <2.0 mg/dL (<2.0)
[2023-02-10 14:09] LABS: Albumin 3.5 g/dL (3.5-5.0); Calcium 8.3 mg/dL (8.4-10.2); Magnesium 1.4 mg/dL (1.6-2.3); Potassium 4.3 mmol/L (3.5-5.1); Total Bilirubin 0.7 mg/dL (0.2-1.3); Total Protein 5.7 g/dL (6.3-8.2)
[2023-02-10] MEDS ORDERED: NALOXONE 0.4 MG/ML 1 ML VIAL IV PRN (14:44)
[2023-02-10] MEDS ORDERED: MAGNESIUM SULFATE-D5W PMX 1 GM in DEXTROSE/WATER 1 100ML.BAG IVPB ONE (14:44)
[2023-02-10 15:38] LABS: INR 0.9 (<1.2)
[2023-02-10 15:39] LABS: Partial Thromboplastin Time 21.6 sec (22.0-30.0)
[2023-02-10] MEDS: SODIUM CHLORIDE 0.9% 1,000 ML IV SCH (15:49)
[2023-02-10] MEDS: GABAPENTIN 300 MG CAP PO SCH (20:52)
[2023-02-10] MEDS: MEMANTINE 10 MG TAB PO SCH (20:52)
[2023-02-10] MEDS: metFORMIN 500 MG TAB PO SCH (20:52)
[2023-02-10] MEDS: busPIRone HCl 5 MG TAB PO SCH (20:52)
[2023-02-10] MEDS ORDERED: HEPARIN SODIUM,PORCINE/PF 5,000 UNIT/0.5 ML SYRINGE SQ SCH (21:00)
--- NOTE | 2023-02-11 00:33 | P.HPIM ---
History of Present Illness H&P Date: 02/10/23 Chief Complaint: Generalized weakness Patient is a 77-year-old female with a past medical history of advanced dementia baseline alert awake and oriented x1, hypertension, hyperlipidemia, diabetes type 2 [id number], hypothyroidism and osteoarthritis and history of anxiety was brought to the hospital by her daughter with complaints of generalized weakness and poor oral intake. Patient has been extremely tired as per family. Usually she does not walk much but she is more oriented. Patient has not been eating well for the past couple days. Her was tested positive for COVID-19 on last that is 4 days back. Pulse ox at home was in the high 80s which is the reason her family brought her to the hospital. Patient has been having loose stools as per family. No episodes of vomiting. No complaints of chest pain. Patient otherwise could not provide any history. Patient's daughter lives at bedside and who is able to provide much of the history. Chest x-ray showed low lung volumes with increased haziness in the lungs left greater than right. Consider repeat examination. EKG showed sinus rhythm. Low voltage. Laboratory data showed WBC 7.6 hemoglobin 12.6 and platelets 200 Sodium 137 potassium 4.3 chloride 102 bicarb is 29 BUN 31 and creatinine 1.29 and blood sugar is 129 and magnesium 1.4 proBNP 77 and troponin x1 negative and liver NUMC not elevated. Urinalysis negative for infection Patient is tested positive for COVID-19 PCR. Review of Systems Complete review of systems could not be obtained from the patient except as per HPI. ROS unobtainable: due to mental status Past Medical History Past Medical History: Dementia, Diabetes Mellitus, Deep Vein Thrombosis (DVT), Hyperlipidemia, Hypertension, Memory Impairment, Osteoarthritis (OA), Thyroid Disorder Additional Past Medical History / Comment(s): current nasal congestion, no fever, states "positive cologaurd" chronic pain, History of Any Multi-Drug Resistant Organisms: None Reported Past Surgical History: Appendectomy, Cholecystectomy, Joint Replacement, Orthopedic Surgery Additional Past Surgical History / Comment(s): LEFT KNEE REPLACED, colonoscopy Past Anesthesia/Blood Transfusion Reactions: No Reported Reaction Past Psychological History: Anxiety Additional Psychological History / Comment(s): memory issues Smoking Status: Never smoker Past Alcohol Use History: None Reported Past Drug Use History: None Reported Additional Drug Use History / Comment(s): cbd oil daily, instructed to hold 24hr s - Past Family History Mother Family Medical History: Cancer Additional Family Medical History / Comment(s): lung Medications and Allergies Home Medications Medication Instructions Recorded Confirmed Type Cholecalciferol [Vitamin D3] 50 mcg PO DAILY 03/24/17 02/10/23 History Citalopram Hydrobromide 40 mg PO HS 03/24/17 02/10/23 History [Citalopram HBr] Levothyroxine Sodium [Synthroid] 125 mcg PO DAILY 03/24/17 02/10/23 History Atorvastatin [Lipitor] 20 mg PO DAILY 12/21/19 02/10/23 History Cetirizine HCl [Zyrtec] 10 mg PO DAILY 12/21/19 02/10/23 History Gabapentin [Neurontin] 300 mg PO TID 12/21/19 02/10/23 History Memantine HCl [Namenda Xr] 28 mg PO HS 12/21/19 02/10/23 History busPIRone HCL 15 mg PO BID 12/21/19 02/10/23 History Cyanocobalamin (Vitamin B-12) 5,000 mcg PO DAILY 02/10/23 02/10/23 History [Vitamin B-12] Lisinopril-Hctz 20-12.5 mg 1 tab PO DAILY 02/10/23 02/10/23 History [Zestoretic 20-12.5] [place] 3-6-9 1 cap PO DAILY 02/10/23 02/10/23 History metFORMIN HCL ER [Glucophage XR] 1,000 mg PO BID 02/10/23 02/10/23 History sitaGLIPtin [Januvia] 100 mg PO DAILY 02/10/23 02/10/23 History Allergies Allergy/AdvReac Type Severity Reaction Status Date / Time No Known Allergies Allergy Verified 02/10/23 12:34 Physical Exam Vitals: Vital Signs Temp Pulse Resp BP Pulse Ox 02/10/23 18:35 72 18 122/74 95 02/10/23 17:23 65 18 120/71 97 02/10/23 14:50 65 18 131/79 98 02/10/23 13:03 60 18 94/75 97 02/10/23 12:00 91 L 02/10/23 11:30 98.3 F 71 18 96/48 95 Intake and Output 02/10/23 02/10/2323 06:59 14:59 22:59 Output Total 650 Balance -650 Output: Urine 650 Straight 650 Other: Weight 136.078 kg 136.078 kg PHYSICAL EXAMINATION: Patient is lying in the bed comfortably, no acute distress, awake alert and oriented 1.. Morbidly obese. HEENT: Normocephalic. Neck is supple. Pupils reactive. Nostrils clear. Oral cavity is moist. Neck reveals no JVD, carotid bruits, or thyromegaly. CHEST EXAMINATION: Trachea is central. Symmetrical expansion. Bibasilar diminished sounds, Lung snyder clear to auscultation and percussion. CARDIAC: Normal S1, S2 with no gallops. No murmurs ABDOMEN: Soft. Bowel sounds normal. No organomegaly. No abdominal bruits. Extremities: reveal no edema. No clubbing or cyanosis Neurologically awake, alert, oriented 1. No gross focal deficits noted. Dementia. Skin: No rash or skin lesions. Psychiatric: Coperative. Could not be assessed completely. Musculoskeletal: No joint swelling or deformity. Normal range of motion. Results CBC & Chem 7: 02/10/23 12:18 02/11/23 05:34 Labs: Abnormal Lab Results - Last 24 Hours (Table) 02/10/23 02/10/23 02/10/23 Range/Units 12:18 12:32 13:40 APTT (22.0-30.0) sec BUN 31 H (7-17) mg/dL Creatinine 1.29 H (0.52-1.04) mg/dL Glucose 129 H (74-99) mg/dL Calcium 8.3 L (8.4-10.2) mg/dL Magnesium 1.4 L (1.6-2.3) mg/dL Total Protein 5.7 L (6.3-8.2) g/dL Urine Protein Trace H (Negative) SARS-CoV-2 (PCR) Detected A (Not Detectd) 02/10/23 Range/Units 15:09 APTT 21.6 L (22.0-30.0) sec BUN (7-17) mg/dL Creatinine (0.52-1.04) mg/dL Glucose (74-99) mg/dL Calcium (8.4-10.2) mg/dL Magnesium (1.6-2.3) mg/dL Total Protein (6.3-8.2) g/dL Urine Protein (Negative) SARS-CoV-2 (PCR) (Not Detectd) Thrombosis Risk Factor Assmnt - DVT/VTE Prophylaxis DVT/VTE Prophylaxis: Pharmacologic Prophylaxis ordered Assessment and Plan Assessment: Acute COVID-19 infection. Patient is vaccinated and booster dose x2. Generalized weakness, fatigue and decreased oral intake Acute kidney injury likely prerenal Diabetes type 2 [id number]-ykagyjbst Hypertension Hyperlipidemia Dementia Hypothyroidism Osteoarthritis Anxiety Hypomagnesemia. Replaced. DVT prophylaxis with Lovenox subcu Plan: Patient will be continued on IV hydration with normal saline and monitor renal function. We will hold lisinopril/hydrochlorothiazide. Follow-up CRP and LDH. Continue with multivitamin supplementation. GI and DVT prophylaxis. Continued home medications and follow-up closely. Discussed with her [id number]-yo-[id number] at bedside in detail. Time with Patient: Greater than 30
[2023-02-11] MEDS: SODIUM CHLORIDE 0.9% 1,000 ML IV SCH ×3 (02:42→22:56)
[2023-02-11] MEDS: LEVOTHYROXINE 125 MCG TAB PO SCH (05:40)
[2023-02-11] MEDS: busPIRone HCl 5 MG TAB PO SCH ×2 (08:27→20:43)
[2023-02-11] MEDS: metFORMIN 500 MG TAB PO SCH ×2 (08:27→20:43)
[2023-02-11] MEDS: LINAGLIPTIN 5 MG TABLET PO SCH (08:27)
[2023-02-11] MEDS: ATORVASTATIN 20 MG TAB PO SCH (08:27)
[2023-02-11] MEDS: GABAPENTIN 300 MG CAP PO SCH ×3 (08:27→20:43)
[2023-02-11] MEDS: ENOXAPARIN 40 MG/0.4 ML SYRINGE SQ SCH (08:28)
[2023-02-11] MEDS: LORATADINE 10 MG TAB PO SCH (08:28)
[2023-02-11] MEDS: CHOLECALCIFEROL 25 MCG (1000 IU) TABLET PO SCH (08:28)
[2023-02-11] MEDS: ASCORBIC ACID 500 MG TAB PO SCH (08:28)
[2023-02-11] MEDS: MEMANTINE 10 MG TAB PO SCH ×2 (08:28→20:43)
[2023-02-11] MEDS: ZINC SULFATE 220 MG CAP PO SCH (08:28)
[2023-02-11] MEDS ORDERED: LISINOPRIL-HCTZ 20-12.5 MG 1 EACH TAB PO SCH (09:00)
[2023-02-11 09:29] LABS: African American GFR (CKD) 56.9 (60.0-200.0); Anion Gap 9.3 mmol/L (10.00-18.00); BUN/Creat Ratio 17.64 Ratio (12.00-20.00); Blood Urea Nitrogen 19.4 mg/dL (9.0-27.0); C Reactive Protein 2.8 mg/dL (0.00-0.80); Calcium 8.4 mg/dL (8.7-10.3); Carbon Dioxide 24.7 mmol/L (20.0-27.5); Non-African American GFR(CKD) 49.1 (60.0-200.0); Potassium 4.1 mmol/L (3.5-5.5)
[2023-02-11] MEDS: VANCOMYCIN 2,000 MG in SODIUM CHLORIDE 0.9% 500 ML 500 ML IVPB SCH (14:55)
[2023-02-11 15:23] LABS: Basophils # (A) 0.03 X 10*3/uL (0.00-0.10); Basophils % (A) 0.4 %; Eosinophils # (A) 0.12 X 10*3/uL (0.04-0.35); Eosinophils % (A) 1.5 %; HGB 11.1 g/dL (12.0-15.0); Immature Grans, Automated 0.4 %; Lymphocytes % (A) 15.9 %; MCH 29.8 pg (27.0-32.0); MCHC 30.8 g/dL (32.0-37.0); MCV 96.8 fL (80.0-97.0); Mean Platelet Volume 11.7 fL (9.5-12.2); Monocytes # (A) 0.71 X 10*3/uL (0.20-1.00); Monocytes % (A) 8.7 %; NRBC Per 100 WBC 0 /100 WBCS (0.0-0.0); Neutrophils # (A) 6.01 X 10*3/uL (1.80-7.70); Neutrophils % (A) 73.1 %; Platelet Count 193 X 10*3/uL (140-440); RBC 3.72 X 10*6/uL (4.10-5.20); RDW 13.4 % (11.5-14.5)
[2023-02-11 20:38] LABS: Glucose,Whole Blood 120 mg/dL (70-110)
[2023-02-12] MEDS: LEVOTHYROXINE 125 MCG TAB PO SCH (05:44)
[2023-02-12] MEDS: SODIUM CHLORIDE 0.9% 1,000 ML IV SCH ×3 (05:47→19:45)
[2023-02-12 05:50] LABS: Glucose,Whole Blood 117 mg/dL (70-110)
[2023-02-12 06:18] LABS: African American GFR (CKD) 66 (>60 ml/min/1.73 sqM); Anion Gap 5 mmol/L; Blood Urea Nitrogen 12 mg/dL (7-17); Calcium 7.9 mg/dL (8.4-10.2); Carbon Dioxide 25 mmol/L (22-30); Chloride 109 mmol/L (98-107); Glucose 119 mg/dL (74-99); Non-African American GFR(CKD) 58 (>60 ml/min/1.73 sqM); Potassium 3.9 mmol/L (3.5-5.1); Sodium 139 mmol/L (137-145)
[2023-02-12] MEDS: metFORMIN 500 MG TAB PO SCH ×2 (09:51→21:29)
[2023-02-12] MEDS: CHOLECALCIFEROL 25 MCG (1000 IU) TABLET PO SCH (09:51)
[2023-02-12] MEDS: busPIRone HCl 5 MG TAB PO SCH ×2 (09:51→21:29)
[2023-02-12] MEDS: ENOXAPARIN 40 MG/0.4 ML SYRINGE SQ SCH (09:51)
[2023-02-12] MEDS: MEMANTINE 10 MG TAB PO SCH ×2 (09:52→21:30)
[2023-02-12] MEDS: ZINC SULFATE 220 MG CAP PO SCH (09:52)
[2023-02-12] MEDS: LORATADINE 10 MG TAB PO SCH (09:52)
[2023-02-12] MEDS: LINAGLIPTIN 5 MG TABLET PO SCH (09:52)
[2023-02-12] MEDS: ATORVASTATIN 20 MG TAB PO SCH (09:52)
[2023-02-12] MEDS: GABAPENTIN 300 MG CAP PO SCH ×3 (09:52→21:29)
[2023-02-12] MEDS: ASCORBIC ACID 500 MG TAB PO SCH (09:52)
[2023-02-12 09:54] LABS: Basophils # (A) 0.02 X 10*3/uL (0.00-0.10); Basophils % (A) 0.3 %; Eosinophils # (A) 0.29 X 10*3/uL (0.04-0.35); Eosinophils % (A) 4.4 %; HCT 35.8 % (37.2-46.3); Immature Grans, Automated 0.3 %; Lymphocytes # (A) 1.77 X 10*3/uL (0.90-5.00); Lymphocytes % (A) 26.6 %; MCH 29.6 pg (27.0-32.0); MCHC 30.7 g/dL (32.0-37.0); MCV 96.2 fL (80.0-97.0); Mean Platelet Volume 11.1 fL (9.5-12.2); Monocytes # (A) 0.59 X 10*3/uL (0.20-1.00); Monocytes % (A) 8.9 %; NRBC Per 100 WBC 0 /100 WBCS (0.0-0.0); Neutrophils # (A) 3.96 X 10*3/uL (1.80-7.70); Neutrophils % (A) 59.5 %; Platelet Count 197 X 10*3/uL (140-440); RBC 3.72 X 10*6/uL (4.10-5.20); RDW 13.5 % (11.5-14.5); WBC 6.65 X 10*3/uL (4.50-10.00)
[2023-02-12 11:58] LABS: Glucose,Whole Blood 166 mg/dL (70-110)
[2023-02-12] MEDS: VANCOMYCIN 2,000 MG in SODIUM CHLORIDE 0.9% 500 ML 500 ML IVPB SCH (14:08)
[2023-02-12 16:49] LABS: Glucose,Whole Blood 116 mg/dL (70-110)
[2023-02-12 20:34] LABS: Glucose,Whole Blood 118 mg/dL (70-110)
[2023-02-12] MEDS: ACETAMINOPHEN TAB 325 MG TAB PO PRN (21:30)
--- NOTE | 2023-02-12 21:39 | P.CONS ---
History of Present Illness - Reason for Consult Consult date: 02/12/23 positive blood culture, covid Requesting physician: Lidya Arteaga - Chief Complaint Increasing weakness x few days - History of Present Illness Patient is a 77-year-old female with a past medical history negative for hypertension hyperlipidemia hypothyroidism dementia in this patient who is fully vaccinated for COVID-19 and boosted presenting to the ER 2 days ago for evaluation of weakness apparently the patient was diagnosed with a COVID few days before presentation to the hospital and apparently the patient was getting weaker and did have decreased oral intake and the patient was noticed to have a pulse ox of 80% on room air on arrival to the ER the patient was afebrile and no fever has been recorded subsequently patient at 1 point did have a O2 sats of 91% and did require supplemental oxygen however currently the patient is 95 to 96% on room air patient did have a normal white count kidney function has been normal urine has been negative she tested positive for COVID RSV influenza was negative patient did have a chest x-ray reported low lung volumes increased haziness lung bases left better than right consider repeat examination patient also have a blood culture drawn which came back positive with gram-positive cocci staph epi patient was started on vancomycin infectious disease was consulted because of positive blood culture and need for further antibiotic therapy. Patient at time of evaluation on 02/12/2023 is afebrile the patient is currently breathing comfortably on room air satting around 96% patient did mention she is feeling slightly better patient denies having any chest pain she did have a mild cough per the daughter at the bedside but no sputum production no nausea no vomiting no abdominal pain did have some diarrhea no urinary symptoms patient currently do not have any open sores or any swelling redness of the joints Review of Systems Positive point has been mentioned in the HPI rest of the systems are negative Past Medical History Past Medical History: Dementia, Diabetes Mellitus, Deep Vein Thrombosis (DVT), Hyperlipidemia, Hypertension, Memory Impairment, Osteoarthritis (OA), Thyroid Disorder Additional Past Medical History / Comment(s): current nasal congestion, no fever, states "positive cologaurd" chronic pain, History of Any Multi-Drug Resistant Organisms: None Reported Past Surgical History: Appendectomy, Cholecystectomy, Joint Replacement, Orthopedic Surgery Additional Past Surgical History / Comment(s): LEFT KNEE REPLACED, colonoscopy Past Anesthesia/Blood Transfusion Reactions: No Reported Reaction Past Psychological History: Anxiety Additional Psychological History / Comment(s): memory issues Smoking Status: Never smoker Past Alcohol Use History: None Reported Past Drug Use History: None Reported Additional Drug Use History / Comment(s): cbd oil daily, instructed to hold 24hrs - Past Family History Mother Family Medical History: Cancer Additional Family Medical History / Comment(s): lung Medications and Allergies Home Medications Medication Instructions Recorded Confirmed Type Cholecalciferol [Vitamin D3 (25 50 mcg PO DAILY 03/24/17 02/10/23 History Mcg = 1000 Iu)] Citalopram Hydrobromide 40 mg PO HS 03/24/17 02/10/23 History [Citalopram HBr] Levothyroxine Sodium [Synthroid] 125 mcg PO DAILY 03/24/17 02/10/23 History Atorvastatin [Lipitor] 20 mg PO DAILY 12/21/19 02/10/23 History Cetirizine HCl [Zyrtec] 10 mg PO DAILY 12/21/19 02/10/23 History Gabapentin [Neurontin] 300 mg PO TID 12/21/19 02/10/23 History Memantine HCl [Namenda Xr] 28 mg PO HS 12/21/19 02/10/23 History busPIRone HCL 15 mg PO BID 12/21/19 02/10/23 History Cyanocobalamin (Vitamin B-12) 5,000 mcg PO DAILY 02/10/23 02/10/23 History [Vitamin B-12] Lisinopril-Hctz 20-12.5 mg 1 tab PO DAILY 02/10/23 02/10/23 History [Zestoretic 20-12.5] [place] 3-6-9 1 cap PO DAILY 02/10/23 02/10/23 History metFORMIN HCL ER [Glucophage XR] 1,000 mg PO BID 02/10/23 02/10/23 History sitaGLIPtin [Januvia] 100 mg PO DAILY 02/10/23 02/10/23 History Acetaminophen Tab [Tylenol] 650 mg PO Q6HR PRN tab 02/13/23 Rx Ascorbic Acid [Vitamin C] 500 mg PO DAILY #30 tab 02/13/23 Rx Zinc Sulfate [Orazinc] 220 mg PO DAILY 14 Days #14 cap 02/13/23 Rx Allergies Allergy/AdvReac Type Severity Reaction Status Date / Time No Known Allergies Allergy Verified 02/10/23 12:34 Physical Exam Vitals: Vital Signs Temp Pulse Resp BP Pulse Ox 02/12/23 08:49 94 L 02/12/23 07:48 98.5 F 67 18 109/67 95 02/12/23 01:06 98.5 F 63 17 124/72 94 L 02/11/23 19:16 97.4 F L 69 18 130/84 96 02/11/23 14:33 97.7 F 77 18 106/72 94 L Intake and Output 02/11/23 02/12/23 02/12/23 22:59 06:59 14:59 Output Total 1300 Balance -1300 Output: Urine 1300 Other: Voiding Method External Catheter External Catheter # Voids 1 2 GENERAL DESCRIPTION: Elderly female up in the chair, no distress. No tachypnea or accessory muscle of respiration use. HEENT: Shows Pallor , no scleral icterus. Oral mucous membrane is dry. No pharyngeal erythema or thrush NECK: Trachea central, no thyromegaly. LUNGS: Unlabored breathing. Decreased Breath sounds at the bases HEART: S1, S2, regular rate and rhythm. No loud murmur ABDOMEN: Soft, no tenderness , guarding or rigidity, no organomegaly EXTREMITIES: No edema of feet. SKIN: No rash, no masses palpable. NEUROLOGICAL: The patient is awake, alert, oriented x2, mood and affect normal. Results CBC & Chem 7: 02/13/23 06:46 02/13/23 06:46 Labs: Abnormal Lab Results - Last 24 Hours (Table) 02/11/23 02/11/23 02/12/23 Range/Units 11:16 20:35 05:33 RBC 3.72 L (4.10-5.20) X 10*6/uL Hgb 11.1 L (12.0-15.0) g/dL Hct 36.0 L (37.2-46.3) % MCHC 30.8 L (32.0-37.0) g/dL Chloride 109 H (98-107) mmol/L Glucose 119 H (74-99) mg/dL POC Glucose (mg/dL) 120 H (70-110) mg/dL Calcium 7.9 L (8.4-10.2) mg/dL 02/12/23 02/12/23 02/12/23 Range/Units 05:33 05:49 11:57 RBC 3.72 L (4.10-5.20) X 10*6/uL Hgb 11.0 L (12.0-15.0) g/dL Hct 35.8 L (37.2-46.3) % MCHC 30.7 L (32.0-37.0) g/dL Chloride (98-107) mmol/L Glucose (74-99) mg/dL POC Glucose (mg/dL) 117 H 166 H (70-110) mg/dL Calcium (8.4-10.2) mg/dL Microbiology - Last 24 Hours (Table) 02/10/23 12:18 Blood Culture Gram Stain - Preliminary Blood Blood Culture - Preliminary Coagulase Negative Staph 02/10/23 12:18 Blood Culture Gram Stain - Preliminary Blood Blood Culture - Preliminary Staphylococcus epidermidis Assessment and Plan (1) COVID-19 virus infection Status: Acute Code(s): U07.1 - COVID-19 SNOMED Code(s): 649543944 (2) Positive blood culture Status: Acute Code(s): R78.81 - BACTEREMIA SNOMED Code(s): 309468411 Plan: 1patient with a positive blood culture with staph epi in this patient with no fever no elevated white count patient currently do not have any open sores or focus of this positive blood culture more likely representing skin contamination. 2patient presented to hospital with weakness secondary to COVID-19 however the patient is currently afebrile he is not hypoxic or need for supplemental oxygen treatment will be mostly supportive. 3blood cultures will be repeated document clearance. 4discontinue vancomycin to decrease risk of nephrotoxicity. 5patient to continue with the zinc ascorbic acid Lovenox no need for steroids or remdesivir at this point. 6we will repeat a chest x-ray and inflammatory markers 7-continue with the droplet isolation Daughter at the bedside multiple questions concerns were answered in layman term We will follow on clinical condition and cultures to further adjust medication if needed Thank you for this consultation we will follow the patient along with you Time with Patient: Greater than 30
--- NOTE | 2023-02-13 02:19 | P.PN ---
Subjective Progress Note Date: 02/12/23 Patient is a 77-year-old female with a past medical history of advanced dementia baseline alert awake and oriented x1, hypertension, hyperlipidemia, diabetes type 2 [id number], hypothyroidism and osteoarthritis and history of anxiety was brought to the hospital by her daughter with complaints of generalized weakness and poor oral intake. Patient has been extremely tired as per family. Usually she does not walk much but she is more oriented. Patient has not been eating well for the past couple days. Her was tested positive for COVID-19 on last that is 4 days back. Pulse ox at home was in the high 80s which is the reason her family brought her to the hospital. Patient has been having loose stools as per family. No episodes of vomiting. No complaints of chest pain. Patient otherwise could not provide any history. Patient's daughter lives at bedside and who is able to provide much of the history. Chest x-ray showed low lung volumes with increased haziness in the lungs left greater than right. Consider repeat examination. EKG showed sinus rhythm. Low voltage. Laboratory data showed WBC 7.6 hemoglobin 12.6 and platelets 200 Sodium 137 potassium 4.3 chloride 102 bicarb is 29 BUN 31 and creatinine 1.29 and blood sugar is 129 and magnesium 1.4 proBNP 77 and troponin x1 negative and liver NUMC not elevated. Urinalysis negative for infection Patient is tested positive for COVID-19 PCR. 02/12/2023 Patient seen and evaluated in follow-up today while working with PT/OT therapy and continues to be weak although per nursing staff and daughter, patient is doing slightly better. Patient did have a positive blood culture and ID was consulted. Patient was showing staph epi and vancomycin was given. Patient is afebrile and continues to be on room air and being treated for covid. No reports of nausea or vomiting and patient is eating a little better today. Will await and appreciate input and recommendations from infectious disease. Encouraged increased activity as tolerated. Case management/social work following and working on discharge planning as patient daughter plans to take her home. Review of systems: Unable to obtain due to mental status Active Medications Ascorbic Acid (Ascorbic Acid 500 Mg Tab) 500 mg PO DAILY [facility] Last Admin: 02/12/23 09:52 Dose: 500 mg Atorvastatin Calcium (Atorvastatin 20 Mg Tab) 20 mg PO DAILY [facility] Last Admin: 02/12/23 09:52 Dose: 20 mg Buspirone HCl (Buspirone Hcl 5 Mg Tab) 15 mg PO BID [facility] Last Admin: 02/12/23 09:51 Dose: 15 mg Cholecalciferol (Cholecalciferol 25 Mcg (1000 Iu) Tablet) 25 mcg PO DAILY [facility] Last Admin: 02/12/23 09:51 Dose: 25 mcg Enoxaparin Sodium (Enoxaparin 40 Mg/0.4 Ml Syringe) 40 mg SQ DAILY [facility] Last Admin: 02/12/23 09:51 Dose: 40 mg Gabapentin (Gabapentin 300 Mg Cap) 300 mg PO TID [facility] Last Admin: 02/12/23 09:52 Dose: 300 mg Sodium Chloride (Saline 0.9%) 1,000 mls @ 100 mls/hr IV .Q10H [facility] Last Admin: 02/12/23 05:47 Dose: 100 mls/hr Levothyroxine Sodium (Levothyroxine 125 Mcg Tab) 125 mcg PO DAILY@0630 [facility] Last Admin: 02/12/23 05:44 Dose: 125 mcg Linagliptin (Linagliptin 5 Mg Tablet) 5 mg PO DAILY [facility] Last Admin: 02/12/23 09:52 Dose: 5 mg Loratadine (Loratadine 10 Mg Tab) 10 mg PO DAILY [facility] Last Admin: 02/12/23 09:52 Dose: 10 mg Memantine (Memantine 10 Mg Tab) 10 mg PO BID [facility] Last Admin: 02/12/23 09:52 Dose: 10 mg Metformin HCl (Metformin 500 Mg Tab) 1,000 mg PO BID [facility] Last Admin: 02/12/23 09:51 Dose: 1,000 mg Naloxone HCl (Naloxone 0.4 Mg/Ml 1 Ml Vial) 0.2 mg IV Q2M PRN PRN Reason: Opioid Reversal Zinc Sulfate (Zinc Sulfate 220 Mg Cap) 220 mg PO DAILY [facility] Last Admin: 02/12/23 09:52 Dose: 220 mg Physical exam: Patient is sitting up on the commode, no acute distress, awake alert and oriented 1.. Morbidly obese. HEENT: Normocephalic. Neck is supple. Pupils reactive. Nostrils clear. Oral cavity is moist. Neck reveals no JVD, carotid bruits, or thyromegaly. CHEST EXAMINATION: Trachea is central. Symmetrical expansion. Bibasilar diminished sounds, Lung snyder clear to auscultation and percussion. CARDIAC: Normal S1, S2 with no gallops. No murmurs ABDOMEN: Soft. Bowel sounds normal. No organomegaly. No abdominal bruits. Extremities: reveal no edema. No clubbing or cyanosis Neurologically awake, alert, oriented 1. No gross focal deficits noted. Dementia. Skin: No rash or skin lesions. Psychiatric: Cooperative. Could not be assessed completely. Musculoskeletal: No joint swelling or deformity. Normal range of motion. Assessment: Acute COVID-19 infection. Patient is vaccinated and booster dose x2. bacteremia with staph epi, possible contamination Generalized weakness, fatigue and decreased oral intake Acute kidney injury likely prerenal Diabetes type 2 [id number] Hypertension Hyperlipidemia Dementia Hypothyroidism Osteoarthritis Anxiety Hypomagnesemia. Replaced. DVT prophylaxis with Lovenox subcu Plan: Patient will be continued on gentle IV hydration with normal saline and renal functions improving ID consulted and appreciate input and recommendations as patient had some positive blood cultures showing staph epidermidis and second one being coag neg staph and was given vancomycin per pharmacy. Vanco discontinued and follow up chest xray and inflammatory markers along with repeat blood cultures ordered for am. We will continue to hold lisinopril/hydrochlorothiazide. Continue with multivitamin supplementation. Recommend PT daily and encouraged oral intake GI and DVT prophylaxis. Continued home medications and follow-up closely. Discussed with her [id number] at bedside in detail. Plan is to return home daughter once stabilized and discharged Due to multiple complex medical issues, prognosis is guarded. The impression and plan of care has been dictated by Lidya Arteaga, Nurse Practitioner as directed. Dr. Gilberto MD I have performed a history and examination and MDM of this patient, discussed the same with the dictator, and agree with the dictator's assessment and plan as written ,documented as a scribe. Based on total visit time, I have performed more than 50% of the visit. Objective - Vital Signs Vital signs: Vital Signs Temp 98.5 F 02/12/23 07:48 Pulse 67 02/12/23 07:48 Resp 18 02/12/23 07:48 BP 109/67 02/12/23 07:48 Pulse Ox 94 L 02/12/23 08:49 FiO2 Intake & Output 02/11/23 02/12/23 02/12/23 18:59 06:59 18:59 Output Total 651 1300 Balance -651 -1300 Output: Urine 650 1300 Stool 1 Other: Voiding Method External Catheter External Catheter # Voids 1 2 - Labs CBC & Chem 7: 02/12/23 05:33 02/12/23 05:33 Labs: Abnormal Lab Results - Last 24 Hours (Table) 02/11/23 02/11/23 02/12/23 Range/Units 11:16 20:35 05:33 RBC 3.72 L (4.10-5.20) X 10*6/uL Hgb 11.1 L (12.0-15.0) g/dL Hct 36.0 L (37.2-46.3) % MCHC 30.8 L (32.0-37.0) g/dL Chloride 109 H (98-107) mmol/L Glucose 119 H (74-99) mg/dL POC Glucose (mg/dL) 120 H (70-110) mg/dL Calcium 7.9 L (8.4-10.2) mg/dL 02/12/23 Range/Units 05:49 RBC (4.10-5.20) X 10*6/uL Hgb (12.0-15.0) g/dL Hct (37.2-46.3) % MCHC (32.0-37.0) g/dL Chloride (98-107) mmol/L Glucose (74-99) mg/dL POC Glucose (mg/dL) 117 H (70-110) mg/dL Calcium (8.4-10.2) mg/dL Microbiology - Last 24 Hours (Table) 02/10/23 12:18 Blood Culture Gram Stain - Preliminary Blood Blood Culture - Preliminary Staphylococcus epidermidis 02/10/23 12:18 Blood Culture Gram Stain - Preliminary Blood 02/10/23 12:18 Blood Culture - Final Blood
[2023-02-13] MEDS: SODIUM CHLORIDE 0.9% 1,000 ML IV SCH (05:12)
[2023-02-13 06:18] LABS: Glucose,Whole Blood 125 mg/dL (70-110)
[2023-02-13] MEDS: LEVOTHYROXINE 125 MCG TAB PO SCH (06:54)
--- NOTE | 2023-02-13 07:25 | XR ---
EXAMINATION TYPE: XR chest 1V portable DATE OF EXAM: 02/13/2023 6:32 AM COMPARISON: Chest radiographs from 02/10/2023 TECHNIQUE: XR chest 1V portable Portable AP radiograph of the chest. CLINICAL INDICATION:Female, 77 years old with history of pneumonia; FINDINGS: Lungs/Pleura: There is no evidence of pleural effusion, focal consolidation, or pneumothorax. Pulmonary vascularity: Unremarkable. Heart/mediastinum: Cardiomediastinal silhouette is unremarkable. Musculoskeletal: No acute osseous pathology. Other findings: None IMPRESSION: Stable exam without significant change from 02/10/2023, while the lung volumes remain present.
[2023-02-13 08:31] VITALS: TEMP 97.4
[2023-02-13 09:34] LABS: Basophils # (A) 0.04 X 10*3/uL (0.00-0.10); Basophils % (A) 0.6 %; Eosinophils # (A) 0.34 X 10*3/uL (0.04-0.35); Eosinophils % (A) 5.5 %; HCT 36.3 % (37.2-46.3); HGB 11.2 g/dL (12.0-15.0); Immature Grans, Automated 0.2 %; Lymphocytes # (A) 1.72 X 10*3/uL (0.90-5.00); Lymphocytes % (A) 27.9 %; MCH 30.2 pg (27.0-32.0); MCHC 30.9 g/dL (32.0-37.0); MCV 97.8 fL (80.0-97.0); Mean Platelet Volume 11.1 fL (9.5-12.2); Monocytes # (A) 0.47 X 10*3/uL (0.20-1.00); Monocytes % (A) 7.6 %; NRBC Per 100 WBC 0 /100 WBCS (0.0-0.0); Neutrophils # (A) 3.59 X 10*3/uL (1.80-7.70); Neutrophils % (A) 58.2 %; Platelet Count 185 X 10*3/uL (140-440); RBC 3.71 X 10*6/uL (4.10-5.20); RDW 13.4 % (11.5-14.5); WBC 6.17 X 10*3/uL (4.50-10.00)
[2023-02-13] MEDS: ENOXAPARIN 40 MG/0.4 ML SYRINGE SQ SCH (09:59)
[2023-02-13] MEDS: ACETAMINOPHEN TAB 325 MG TAB PO PRN (09:59)
[2023-02-13] MEDS: busPIRone HCl 5 MG TAB PO SCH (10:00)
[2023-02-13] MEDS: ZINC SULFATE 220 MG CAP PO SCH (10:00)
[2023-02-13] MEDS: ATORVASTATIN 20 MG TAB PO SCH (10:00)
[2023-02-13] MEDS: metFORMIN 500 MG TAB PO SCH (10:01)
[2023-02-13] MEDS: GABAPENTIN 300 MG CAP PO SCH ×2 (10:01→16:52)
[2023-02-13] MEDS: ASCORBIC ACID 500 MG TAB PO SCH (10:01)
[2023-02-13] MEDS: LORATADINE 10 MG TAB PO SCH (10:01)
[2023-02-13] MEDS: MEMANTINE 10 MG TAB PO SCH (10:02)
[2023-02-13] MEDS: LINAGLIPTIN 5 MG TABLET PO SCH (10:02)
[2023-02-13] MEDS: CHOLECALCIFEROL 25 MCG (1000 IU) TABLET PO SCH (10:02)
[2023-02-13 10:07] LABS: African American GFR (CKD) 66.2 (60.0-200.0); Albumin 3.5 g/dL (3.8-4.9); Albumin/Globulin Ratio 1.93 (1.60-3.17); Anion Gap 9.4 mmol/L (10.00-18.00); BUN/Creat Ratio 10.25 Ratio (12.00-20.00); Blood Urea Nitrogen 9.9 mg/dL (9.0-27.0); Calcium 8.4 mg/dL (8.7-10.3); Carbon Dioxide 24.9 mmol/L (20.0-27.5); Globulin 1.8 g/dL (1.6-3.3); Non-African American GFR(CKD) 57.1 (60.0-200.0); Potassium 3.9 mmol/L (3.5-5.5); Total Bilirubin 0.4 mg/dL (0.30-1.20); Total Protein 5.4 g/dL (6.2-8.2)
[2023-02-13 11:33] LABS: Glucose,Whole Blood 139 mg/dL (70-110)
[2023-02-13] MEDS ORDERED: ALPRAZolam 0.25 MG TAB PO PRN (13:55)
--- NOTE | 2023-02-13 14:27 | P.PN ---
Subjective Progress Note Date: 02/13/23 Principal diagnosis: Positive blood culture and covid 19 Patient is a 77-year-old female with multiple comorbidities including dementia in this patient has received covid vaccination including booster, disintegrating tested positive in outpatient setting with covid 19, who was brought into the hospital with weakness and hypoxemia patient also have a blood culture which came back positive with staph epi. On today's evaluation that is 02/13/2023, the patient is afebrile the patient is breathing comfortably on room air currently satting 95%, the patient daugter mention occasional cough has been noticed over the last 24 hour, but no worsening no vomiting no diarrhea, did have been concerned about her lower extremity swelling because of her no mobility Objective - Vital Signs Vital signs: Vital Signs Temp 97.4 F L 02/13/23 08:00 Pulse 65 02/13/23 08:00 Resp 20 02/13/23 08:00 BP 159/81 02/13/23 08:00 Pulse Ox 93 L 02/13/23 08:00 FiO2 Intake & Output 02/12/23 02/13/23 02/13/23 18:59 06:59 18:59 Intake Total 1200 Output Total 550 1000 Balance 650 -1000 Intake: Intake, IV Titration 1200 Amount Sodium Chloride 0.9% 1, 1200 000 ml @ 100 mls/hr IV . Q10H [facility] Rx#:[id number] Output: Urine 550 1000 Other: Voiding Method External Catheter External Catheter Diaper # Voids 2 # Bowel Movements 1 - Exam GENERAL DESCRIPTION: An elderly female up in the chair in no distress RESPIRATORY SYSTEM: Unlabored breathing , decreased breath sounds at bases HEART: S1 S2 regular rate and rhythm , ABDOMEN: Soft , no tenderness EXTREMITIES: Diffuse swelling to lower extremity, no redness - Labs CBC & Chem 7: 02/13/23 06:46 02/13/23 06:46 Labs: Abnormal Lab Results - Last 24 Hours (Table) 02/12/23 02/12/23 02/12/23 Range/Units 05:33 11:57 16:48 RBC (4.10-5.20) X 10*6/uL Hgb (12.0-15.0) g/dL Hct (37.2-46.3) % MCV (80.0-97.0) fL MCHC (32.0-37.0) g/dL D-Dimer (<0.60) mg/L FEU Anion Gap (10.00-18.00) mmol/L Est GFR (CKD-EPI)NonAf (60.0-200.0) BUN/Creatinine Ratio (12.00-20.00) Ratio Glucose (70-110) mg/dL POC Glucose (mg/dL) 166 H 116 H (70-110) mg/dL Calcium (8.7-10.3) mg/dL C-Reactive Protein (0.00-0.80) mg/dL Total Protein (6.2-8.2) g/dL Albumin (3.8-4.9) g/dL Vitamin B12 1644.0 H (200.0-944.0) pg/mL Procalcitonin (0.02-0.09) ng/mL 02/12/23 02/13/23 02/13/23 Range/Units 20:32 06:15 06:46 RBC (4.10-5.20) X 10*6/uL Hgb (12.0-15.0) g/dL Hct (37.2-46.3) % MCV (80.0-97.0) fL MCHC (32.0-37.0) g/dL D-Dimer (<0.60) mg/L FEU Anion Gap (10.00-18.00) mmol/L Est GFR (CKD-EPI)NonAf (60.0-200.0) BUN/Creatinine Ratio (12.00-20.00) Ratio Glucose (70-110) mg/dL POC Glucose (mg/dL) 118 H 125 H (70-110) mg/dL Calcium (8.7-10.3) mg/dL C-Reactive Protein (0.00-0.80) mg/dL Total Protein (6.2-8.2) g/dL Albumin (3.8-4.9) g/dL Vitamin B12 (200.0-944.0) pg/mL Procalcitonin 0.11 H (0.02-0.09) ng/mL 02/13/23 02/13/23 02/13/23 Range/Units 06:46 06:46 06:46 RBC 3.71 L (4.10-5.20) X 10*6/uL Hgb 11.2 L (12.0-15.0) g/dL Hct 36.3 L (37.2-46.3) % MCV 97.8 H (80.0-97.0) fL MCHC 30.9 L (32.0-37.0) g/dL D-Dimer 1.07 H (<0.60) mg/L FEU Anion Gap 9.40 L (10.00-18.00) mmol/L Est GFR (CKD-EPI)NonAf 57.1 L (60.0-200.0) BUN/Creatinine Ratio 10.25 L (12.00-20.00) Ratio Glucose 125 H (70-110) mg/dL POC Glucose (mg/dL) (70-110) mg/dL Calcium 8.4 L (8.7-10.3) mg/dL C-Reactive Protein 2.00 H (0.00-0.80) mg/dL Total Protein 5.4 L (6.2-8.2) g/dL Albumin 3.5 L (3.8-4.9) g/dL Vitamin B12 (200.0-944.0) pg/mL Procalcitonin (0.02-0.09) ng/mL Microbiology - Last 24 Hours (Table) 02/10/23 12:18 Blood Culture Gram Stain - Preliminary Blood Blood Culture - Preliminary Coagulase Negative Staph Assessment and Plan (1) Positive blood culture Current Visit: Yes Status: Acute Code(s): R78.81 - BACTEREMIA SNOMED Code(s): 582389901 (2) COVID-19 virus infection Current Visit: Yes Status: Acute Code(s): U07.1 - COVID-19 SNOMED Code(s): 977542844 Plan: 1patient with a positive blood culture with staph epi in this patient with no fever no elevated white count patient currently do not have any open sores or focus of this positive blood culture more likely representing skin contamination , Vancomycin has been discontinued, repeat blood culture so far pending 2patient with weakness secondary to COVID-19 however the patient is currently afebrile , the patient e is not hypoxic or need for supplemental oxygen treatment will be mostly supportive, patient did have mildly elevated d-dimer and will benefit from CT angiogram of the chest which if negative for PE or pneumonia patient be able to go home on supportive treatment in the form of zinc ascorbic acid no need for Remdisivir and discuss with the admitting team Time with Patient: Less than 30
--- NOTE | 2023-02-13 14:34 | CT ---
EXAMINATION TYPE: CT angio chest DATE OF EXAM: 02/13/2023 COMPARISON: Prior CT chest March 24, 2017. Prior chest x-ray earlier today HISTORY: Covid, elevated d-dimer. CT DLP: 880.9 mGycm. Automated Exposure Control for Dose Reduction was Utilized. CONTRAST: CTA scan of the thorax is performed with IV Contrast, patient injected with 80ml mL of Isovue 370, pu lmonary embolism protocol. MIP Images are created on CT scanner and reviewed. FINDINGS: LUNGS: Trace bilateral pleural effusions with mosaic attenuation. Evaluation is suboptimal due to pat ient inability to hold breath. Poor inspiration on current study. No suspicious focal consolidation. There is no pneumothorax seen. The tracheobronchial tree is patent. MEDIASTINUM: There is suboptimal study with equal contrast in the aorta and pulmonary arteries. No c onvincing evidence for helically significant pulmonary embolism. Satisfactory enhancement of the aort a without aneurysm or dissection is seen. There are no greater than 1 cm hilar or mediastinal lymph n odes. No cardiomegaly or pericardial effusion is seen. OTHER: No additional significant abnormality is seen. IMPRESSION: Suboptimal study without acute pulmonary embolism. Perhaps mild fluid overload state. No suspicious focal consolidation.
--- NOTE | 2023-02-13 15:07 | US ---
EXAMINATION TYPE: US venous doppler duplex LE DATE OF EXAM: 02/13/2023 1:04 PM COMPARISON: NONE CLINICAL HISTORY: covid, elevated d dimer, leg swelling. SIDE PERFORMED: Bilateral TECHNIQUE: The lower extremity deep venous system is examined utilizing real time linear array sonog jadon with graded compression, doppler sonography and color-flow sonography. VESSELS IMAGED: Common Femoral Vein Deep Femoral Vein Greater Saphenous Vein * Femoral Vein Popliteal Vein Small Saphenous Vein * Proximal Calf Veins (* superficial vessels) Right Leg: Negative for DVT Left Leg: Negative for DVT IMPRESSION: Grayscale, color doppler, spectral doppler imaging performed of the deep veins of the lo wer extremities. There is normal flow, compressibility, vascular waveforms.
[2023-02-13 15:12] VITALS: BP 107/75; PULSE 52; RESP 18
== END 2023-02-13 17:50 | disposition home health service (06) | DRG 178 ==
LOC: EC 11:21 → 4SSUR 14:48
PROVIDERS: ADMIT Internal Medicine; ATTEND Internal Medicine
DX: U07.1 COVID-19 (principal); F03.94 Unspecified dementia, unspecified severity, with anxiety; Z68.42 Body mass index [BMI] 45.0-49.9, adult; N17.9 Acute kidney failure, unspecified; E03.9 Hypothyroidism, unspecified; E66.9 Obesity, unspecified; E11.9 Type 2 diabetes mellitus without complications; E78.5 Hyperlipidemia, unspecified; G89.29 Other chronic pain; I10 Essential (primary) hypertension; E83.42 Hypomagnesemia; E86.0 Dehydration; M19.90 Unspecified osteoarthritis, unspecified site; R09.02 Hypoxemia; Z79.84 Long term (current) use of oral hypoglycemic drugs; Z79.890 Hormone replacement therapy; Z79.899 Other long term (current) drug therapy; Z86.718 Personal history of other venous thrombosis and embolism
CPT/HCPCS: 36415; 71045; 71046; 71275; 80048; 80053; 81003; 82607; 82747; 83605; 83615; 83735; 83880; 84145; 84443; 84484; 85025; 85379; 85610; 85730; 86140; 87040; 87077; 87186; 87636; 93005; 93970; 94760; 96361; 96365; 99285